=== PATIENT | male | born 1930 | race Caucasian/White ===

== ENCOUNTER 2016-05-01 09:32 | Day surgery (SDC) | payer OTHER, MEDICARE ==
[2016-05-01] MEDS ORDERED: DIAZEPAM 5 MG TAB PO ONE (09:35)
[2016-05-01] MEDS ORDERED: FAMOTIDINE 20 MG TAB PO ONE (09:35)
[2016-05-01] MEDS ORDERED: diphenhydrAMINE 25 MG CAP PO ONE (09:35)
[2016-05-01] MEDS ORDERED: ASPIRIN EC 325 MG TAB PO ONE (09:35)
[2016-05-01] MEDS ORDERED: NS 1,000 ML IV ONE (09:35)
--- NOTE | 2016-05-01 10:07 | CPEKG ---
Heart Rate: 68 RR Interval: 882 P-R Interval: 160 QRSD Interval: 134 QT Interval: 388 QTC Interval: 413 P [place]: 82 QRS [place]: -68 T Wave [place]: 91 EKG Severity - ABNORMAL ECG - EKG Impression: ATRIAL-SENSED VENTRICULAR-PACED RHYTHM Electronically Signed By: John Covarrubias 01-May-2016 14:28:34
[2016-05-01 10:33] LABS: % IMMATURE GRANULYOCYTES 0.2 % (0.0-1.1); ABSOLUTE IMMATURE GRANULOCYTES 0.01 10^3/uL (0.00-0.10); ADD DIFF? NO; ADD MORPH? NO; ADD SCAN? NO; ATYPICAL LYMPHOCYTE FLAG 10 (0-99); FRAGMENT RBC FLAG 0 (0-99); HEMATOCRIT 35.5 % (40.0-51.0); HEMOGLOBIN 12.4 g/dL (13.7-17.5); LEFT SHIFT FLG 0 (0-99); LIPEMIA HEMOLYSIS FLAG 90 (0-99); MEAN CELL HEMOGLOBIN 31.2 pg (27.9-34.1); MEAN CELL HEMOGLOBIN CONCENTR. 34.9 g/dL (32.4-36.7); MEAN CELL VOLUME 89.2 fL (81.5-99.8); MEAN PLATELET VOLUME 7.9 fL (8.7-11.7); PLATELET CLUMPS FLAG 0 (0-99); PLATELET COUNT 202 10^3/uL (150-400); RED BLOOD CELL COUNT 3.98 10^6/uL (4.40-6.38); RED CELL DISTRIBUTION WIDTH 13.2 % (11.5-15.2)
[2016-05-01 10:50] LABS: ANION GAP 11 mEq/L (8-16); CALCIUM 9.4 mg/dL (8.5-10.4); CARBON DIOXIDE 24 mEq/l (22-31); CHLORIDE 97 mEq/L (97-110); CHOLESTEROL 100 mg/dL (140-220); CHOLESTEROL/HDL RATIO 1.96 RATIO (1.00-4.97); CREATININE 0.9 mg/dL (0.7-1.3); GLOMERULAR FILTRATION RATE > 60; GLUCOSE 103 mg/dL (70-100); HIGH DENSITY LIPOPROTEIN 51 mg/dL (40-65); LDL/HDL RATIO 0.65 RATIO (1.00-3.64); LOW DENSITY LIPOPROTEIN 33 mg/dL (80-100); NON-HIGH DENSITY LIPOPROTEIN 49 mg/dL (90-129); POTASSIUM 4.8 mEq/L (3.5-5.2); SODIUM 132 mEq/L (134-144); TRIGLYCERIDE 83 mg/dL (40-150); VERY LOW DENSITY LIPOPROTEINS 16 mg/dL (8-25)
[2016-05-01 10:51] LABS: INR 1.01 (0.83-1.16); PROTIME(PATIENT) 13.2 SEC (12.0-15.0)
[2016-05-01] MEDS ORDERED: LIDOCAINE 1% 30 ML SDV ONE (11:12)
[2016-05-01] MEDS ORDERED: fentaNYL 100 MCG/2 ML INJ ONE (11:12)
[2016-05-01] MEDS ORDERED: VERAPAMIL 5 MG/2 ML VIAL ONE (11:13)
[2016-05-01] MEDS ORDERED: HEPARIN 10,000 UNIT/10 ML MDV ONE (11:13)
[2016-05-01] MEDS ORDERED: MIDAZOLAM 2 MG/2 ML VIAL ONE (11:13)
[2016-05-01] MEDS ORDERED: IOPAMIDOL (ISOVUE 370) 100 ML BTL IV ONE (11:16)
--- NOTE | 2016-05-01 14:58 | SUROPNOTE ---
[facility] Operative Report - Surgery Date of Procedure: 05/01/16 Indication: This patient is an 86 year old man, with known CAD and history of anterior myocardial infarction in 2006 with LAD bare-metal stenting at that time (shown to be patent on [facility] in 2011), ischemic cardiomyopathy, sick sinus syndrome s/p biventricular pacemaker placement, paroxysmal atrial fibrillation, hypertension, and hyperlipidemia, presenting with six weeks of increasing shortness of breath and fatigue, now impacting his quality of life. [place] cardiovascular class III anginal equivalent. Nuclear stress test in 12/2015 showed anterior and anterior lateral ischemia, as well as new transient ischemic dilation of the left ventricle. Right/left heart catheterization indicated secondary to dyspnea, class III anginal equivalent, and high risk non- invasive testing. Procedures performed: 1. Right and Left heart catheterization with left ventricular and selective coronary angiography. Description of procedure: Description, risks, benefits and alternatives were discussed in detail. Informed consent was obtained. The patient was brought to the catheterization laboratory where a timeout was performed. The right arm was sterilely prepped and draped. 2% lidocaine utilized for local anesthetic. A 5-Armenian hemostatic sheath was placed in the right brachial vein utilizing the IV site already in place. A 5-Armenian PWP catheter was utilized for right heart catheterization. Following right heart catheterization, a 5/6-Armenian slender hemostatic sheath placed right radial artery utilizing micropuncture technique. Intraarterial verapamil and intravenous heparin was administered. Diagnostic coronary angiography performed with 6-Armenian, [place] left-3.5 and [place] right-4 catheter. All catheters were passed over a 0.035 guidewire. Pigtail catheter was then utilized for left heart catheterization and left ventricular angiography. Arterial sheath was removed and TR band was placed. Venous sheath was removed in the CVC. Findings: 1. Hemodynamics: Right atrial pressure mean of 6. Right ventricular pressure 42 /0/13 end-diastolic. Pulmonary artery pressure 44/9, mean of 24. Pulmonary capillary wedge pressure mean of 8 with V wave of 10. Aortic pressure 121/60, mean of 80, left ventricular pressure 131/5/21 end-diastolic. There was no significant pull back gradient across the aortic valve. 2. Saturations: Superior vena cava 73.0%, main pulmonary artery 67.4%, Ao 89.2 %. Assumed Miguel Ángel cardiac output 6.56 L/min with a cardiac index of 3.4 L/min/m2. 3. Left ventricle: The left ventricle appears moderately dilated. Left ventricle is normal shape. Segmental wall motion is abnormal demonstrating anterior akinesis, apical dyskinesis, and global hypokinesis, with an ejection fraction of 20-25%. There are no filling defects or significant mitral regurgitation. The aortic root and ascending aorta appears normal, there is no dissection or aneurysm formation. 4. Coronary angiography: Left main: The left main is a moderately large bifurcating vessel with minimal plaquing. 5. Left anterior descending: This is a moderately large vessel continuing around the apex with a large mid-vessel bifurcating diagonal branch. The proximal LAD contains a stent with < 25% stenosis. The mid vessel has 30% luminal irregularities. 6. Circumflex: The circumflex is non-dominant and gives rise to a moderate size bifurcating first obtuse marginal branch, moderately large second obtuse marginal branch, and small posterolateral branch. Contains mild luminal irregularities. 7. Right coronary: Moderate size dominant vessel with an inferior takeoff. Moderate sized PDA, small posterolateral. The right coronary contains a 20% stenosis in the mid vessel. Overall Impression: 1. Mild-moderate three vessel coronary artery disease, with patent left anterior descending stent. 2. Mild-moderate pulmonary hypertension. 3. Left ventricular dysfunction with anterior akinesis, apical dyskinesis, and global hypokinesis, with reduced ejection fraction of 20-25%. Plan: 1. Continue aggressive risk modification and high dose statin therapy. 2. Consider biventricular pacemaker optimization. 3. Evaluation and treatment of the patient's pulmonary hypertension. 4. Medical management of cardiomyopathy. Increase patient's carvedilol dose. 5. Clinical follow up. Portions of this report were documented by a medical secretary teacher. I have reviewed this report and agree with the documentation. Report scribed for Dr. Zachariah Correia. Report scribed by Marisa Mays.
== END 2016-05-01 18:30 | disposition home or self-care (01) ==
LOC: FCATH 09:32
PROVIDERS: ATTEND Internal Medicine Interventional Cardiology
PROC: B2111ZZ Fluoroscopy of Multiple Coronary Arteries using Low Osmolar Contrast (ICD-10-PCS; principal; 2016-05-01)
PROC: 4A023N8 Measurement of Cardiac Sampling and Pressure, Bilateral, Percutaneous Approach (ICD-10-PCS; principal; 2016-05-01)
PROC: B2151ZZ Fluoroscopy of Left Heart using Low Osmolar Contrast (ICD-10-PCS; principal; 2016-05-01)
DX: I25.10 Atherosclerotic heart disease of native coronary artery without angina pectoris (principal); I25.2 Old myocardial infarction; Z95.5 Presence of coronary angioplasty implant and graft; Z95.0 Presence of cardiac pacemaker; I10 Essential (primary) hypertension; E78.5 Hyperlipidemia, unspecified; I48.0 Paroxysmal atrial fibrillation; I49.5 Sick sinus syndrome
CPT/HCPCS: J1644; J2250; J3010; Q9967

== ENCOUNTER → 2016-09-21 | Outpatient (CLI) | payer OTHER, MEDICARE | LOC: BHFA 10:00 | PROVIDERS: ATTEND Internal Medicine Cardiovascular Disease | DX: Z95.0 Presence of cardiac pacemaker (principal) ==

== ENCOUNTER 2016-10-03 12:19 | Day surgery (SDC) | payer OTHER, MEDICARE ==
[2016-10-03] MEDS ORDERED: diphenhydrAMINE 25 MG CAP PO ONE (12:31)
[2016-10-03] MEDS ORDERED: DIAZEPAM 5 MG TAB PO ONE (12:31)
[2016-10-03] MEDS ORDERED: BACITRACIN IRRIGATION/NS 50,000 UNITS/1,000 ML BTL IRR ONE (12:31)
[2016-10-03] MEDS ORDERED: NS 1,000 ML IV ONE (12:31)
[2016-10-03] MEDS ORDERED: ceFAZolin 2 GM/DEXTROSE 100 ML IV ONE (12:31)
--- NOTE | 2016-10-03 13:00 | CPEKG ---
Heart Rate: 63 RR Interval: 952 P-R Interval: 148 QRSD Interval: 142 QT Interval: 440 QTC Interval: 451 P [place]: 24 QRS [place]: -64 T Wave [place]: 61 EKG Severity - ABNORMAL ECG - EKG Impression: A sensed VENTRICULAR-PACED RHYTHM Electronically Signed By: Biju Cline 03-Oct-2016 14:59:35
[2016-10-03 13:09] LABS: % IMMATURE GRANULYOCYTES 0.3 % (0.0-1.1); ABSOLUTE IMMATURE GRANULOCYTES 0.02 10^3/uL (0.00-0.10); ADD DIFF? NO; ADD MORPH? NO; ADD SCAN? NO; ATYPICAL LYMPHOCYTE FLAG 0 (0-99); FRAGMENT RBC FLAG 0 (0-99); HEMATOCRIT 40.2 % (40.0-51.0); HEMOGLOBIN 13.5 g/dL (13.7-17.5); LEFT SHIFT FLG 0 (0-99); LIPEMIA HEMOLYSIS FLAG 80 (0-99); MEAN CELL HEMOGLOBIN 30.6 pg (27.9-34.1); MEAN CELL HEMOGLOBIN CONCENTR. 33.6 g/dL (32.4-36.7); MEAN CELL VOLUME 91.2 fL (81.5-99.8); MEAN PLATELET VOLUME 8.3 fL (8.7-11.7); PLATELET CLUMPS FLAG 0 (0-99); PLATELET COUNT 159 10^3/uL (150-400); RED BLOOD CELL COUNT 4.41 10^6/uL (4.40-6.38); RED CELL DISTRIBUTION WIDTH 13.3 % (11.5-15.2)
[2016-10-03 13:18] LABS: INR 0.99 (0.83-1.16)
[2016-10-03 13:39] LABS: ANION GAP 12 mEq/L (8-16); CALCIUM 9.3 mg/dL (8.5-10.4); CARBON DIOXIDE 23 mEq/l (22-31); CHLORIDE 99 mEq/L (97-110); CREATININE 1.1 mg/dL (0.7-1.3); GLOMERULAR FILTRATION RATE > 60; GLUCOSE 102 mg/dL (70-100); POTASSIUM 4.2 mEq/L (3.5-5.2); SODIUM 134 mEq/L (134-144)
[2016-10-03] MEDS ORDERED: LIDOCAINE 1% 300 MG/30 ML SDV ONE (14:27)
[2016-10-03] MEDS ORDERED: MIDAZOLAM 2 MG/2 ML VIAL ONE (14:28)
[2016-10-03] MEDS ORDERED: BUPIVACAINE 0.5% 30 ML SDV ONE (14:28)
[2016-10-03] MEDS ORDERED: fentaNYL 100 MCG/2 ML INJ ONE (14:28)
--- NOTE | 2016-10-03 15:55 | EPPROC ---
Electrophysiology Procedure Note: PROCEDURE PERFORMED: 1. ABiV Pacemaker generator change INDICATION: Pacemaker generator at [place] Bradycardia PROCEDURE NOTE: Patient presented to the cardiac catheterization laboratory in a fasting, postabsorptive state. EP RN administered sedation. The left infraclavicular area was prepped and draped in the usual sterile fashion. Lidocaine plus bupivacaine was used for local anesthesia. Using a combination of blunt and sharp dissection and electrocautery, the dissection was carried down to the prepectoral fascia and the existing pacemaker pocket was opened. The pacemaker generator was disconnected from the leads and the lead thresholds and impedance were checked. LV lead was noted to have a small amount of blood under insulation, however LV tip to RV threshold was adequate. No obvious insulation break was noted. The pacemaker pocket was copiously irrigated with antibiotic solution. The pocket was again inspected for any bleeding. The leads were attached to the pacemaker securely. The pacemaker was inserted into the pocket and secured in place with a nonabsorbable suture. Leads were gently secured to posterior aspect of pocket with a vicryl suture. The pacemaker pocket was closed in 3 layers with absorbable monocryl sutures and heriberto. Appropriate dressing was applied. The patient left the cardiac catheterization laboratory in stable condition. Serial Numbers: 1. Device [facility] [id number] 2. Atrial Lead [facility] SN [id number] 3. Ventricular Lead [facility] [id number] 4. Coronary sinus Lead [facility] [id number] 75 SN [id number] Stimulation Thresholds & Impedance Measurements: 1. Atrial Lead P 2.3 mV 410 ohm 0.875 V 0.5 V 2. Ventricular Lead R 9.4 mV 410 ohm 1 V 0.5 ms 3. Coronary sinus Lead 890 ohm 1.75 V 1 ms (LV tip to RV ring) (please note LV tip to LV ring has no capture) Russ Pacing Parameters 1. Pacing mode DDDR 2. Lower rate 60 ppm 3. Upper tracking rate 130 ppm 4. Upper sensor rate 130 ppm Patient Problems: Problems Problem Status Onset Cardiomyopathy Acute Dyspnea and respiratory abnormalities Acute Lung nodule, solitary Acute Bronchitis Acute
--- NOTE | 2016-10-03 16:12 | CPEKG ---
Heart Rate: 61 RR Interval: 984 P-R Interval: 156 QRSD Interval: 126 QT Interval: 428 QTC Interval: 431 P [place]: 89 QRS [place]: -61 T Wave [place]: 54 EKG Severity - ABNORMAL ECG - EKG Impression: ATRIAL-SENSED VENTRICULAR-PACED RHYTHM Electronically Signed By: Biju Cline 03-Oct-2016 16:03:01
== END 2016-10-03 17:49 | disposition home or self-care (01) ==
LOC: FCATH 12:19
PROVIDERS: ATTEND Internal Medicine Cardiovascular Disease
PROC: 0JH607Z Insertion of Cardiac Resynchronization Pacemaker Pulse Generator into Chest Subcutaneous Tissue and Fascia, Open Approach (ICD-10-PCS; principal; 2016-10-03)
PROC: 0JPT0PZ Removal of Cardiac Rhythm Related Device from Trunk Subcutaneous Tissue and Fascia, Open Approach (ICD-10-PCS; principal; 2016-10-03)
DX: Z45.010 Encounter for checking and testing of cardiac pacemaker pulse generator [battery] (principal); I25.5 Ischemic cardiomyopathy; I25.10 Atherosclerotic heart disease of native coronary artery without angina pectoris; Z95.5 Presence of coronary angioplasty implant and graft
CPT/HCPCS: C2621; J0690; J2250; J3010

== ENCOUNTER → 2016-11-09 | Outpatient (CLI) | payer OTHER, MEDICARE | LOC: BHFA 09:30 | PROVIDERS: ATTEND Internal Medicine Cardiovascular Disease | DX: Z95.0 Presence of cardiac pacemaker (principal) ==

== ENCOUNTER → 2018-01-16 | Outpatient (CLI) | payer OTHER, MEDICARE | LOC: BMCIMAGING 13:32 | PROVIDERS: ATTEND Urology | DX: R33.9 Retention of urine, unspecified (principal); N32.3 Diverticulum of bladder; N32.89 Other specified disorders of bladder; N28.1 Cyst of kidney, acquired ==